=== PATIENT | female | born 1935 | race Two or more races ===

== ENCOUNTER 2021-10-25 07:40 | Inpatient (IN) | payer OTHER ==
[~2021-10-25] VITALS: Ht 162.6 cm; Wt 39.0 kg
--- NOTE | 2021-10-25 07:58 | NUR ---
RENETTA FROM 4 SEAS[facility] FOR NOTED WEAKNESS AND LOW O2 SATS. PT ATTACHED TO MONITOR, O2 SAT 92%. PT IS A&OX0, RESPONSIVE TO PAIN. BLNAKET PROVIDED FOR COMFORT. AWAITING MD BARBER.
--- NOTE | 2021-10-25 08:01 | NUR ---
IV JESSICA Lowery FA 20G.
[2021-10-25 08:49] LABS: BASOPHILS # (AUTO) 0.1 K/uL (0.0-0.2); BASOPHILS % (AUTO) 0.2 % (0.0-2.0); HEMATOCRIT 39 % (33-45); HEMOGLOBIN 12.7 g/dL (11.5-14.8); LYMPHOCYTES # (AUTO) 1.1 K/uL (0.8-4.8); LYMPHOCYTES % (AUTO) 3.3 % (20.0-44.0); MEAN CORPUSCULAR HGB CONC 33 g/dl (31.0-36.0); MEAN CORPUSCULAR VOLUME 88 fL (82-100); MONOCYTES # (AUTO) 1.3 K/uL (0.1-1.30); MONOCYTES % (AUTO) 3.9 % (2.0-12.0); NEUTROPHILS # (AUTO) 30.6 K/uL (1.8-8.9); NEUTROPHILS % (AUTO) 92.6 % (43.0-81.0); PLATELET COUNT (AUTO) 413 K/uL (150-450); RED BLOOD CELL COUNT(AUTO) 4.38 MIL/uL (4.0-5.2)
[2021-10-25] MEDS ORDERED: LEVOFLOXACIN 750 MG /D5W 150ML PIGGYBACK IV ONE (09:30)
[2021-10-25] MEDS ORDERED: VANCOMYCIN 1 GM in IV D5W 250 ML IV ONE (09:30)
[2021-10-25] MEDS ORDERED: LEVOFLOXACIN 750 MG /D5W 150ML 150 ML IV ONE (09:35)
--- NOTE | 2021-10-25 09:37 | NUR ---
NILAY COLLECTED AND SENT TO LAB
--- NOTE | 2021-10-25 09:53 | NUR ---
URINE COLLECTED AND SENT
[2021-10-25 11:03] LABS: ALANINE AMINOTRANSFERASE 389 U/L (12-78); ALBUMIN 2.9 g/dL (3.4-5.0); ALKALINE PHOSPHATASE 160 U/L (46-116); ASPARTATE AMINOTRANSFERASE 732 U/L (15-37); BILIRUBIN,DIRECT 0.8 mg/dL (0.0-0.2); BILIRUBIN,TOTAL 1.1 mg/dL (0.2-1.0); TOTAL PROTEIN, SERUM 7.6 g/dL (6.4-8.2)
[2021-10-25 11:24] LABS: CALCIUM, SERUM 8.8 mg/dL (8.5-10.1); CARBON DIOXIDE 12 mmol/L (21-32); CHLORIDE 95 mmol/L (98-107); CREATININE 3.3 mg/dL (0.6-1.3); GLUCOSE 112 mg/dL (74-106); SODIUM SERUM 128 mmol/L (136-145)
[2021-10-25 11:43] LABS: POTASSIUM 6.3 mmol/L (3.5-5.1); UREA NITROGEN, BLOOD 150 mg/dL (7-18)
[2021-10-25 11:57] LABS: BILIRUBIN,URINE NEGATIVE (NEGATIVE); COLOR,URINE YELLOW (YELLOW); UGLUCOSE NEGATIVE (NEGATIVE)
[2021-10-25 11:58] LABS: PH,URINE 7.5 (5.0-8.0); PROTEIN,URINE 300 mg/dl (NEGATIVE)
[2021-10-25 11:59] LABS: LEUKOCYTE ESTERASE ,URINE LARGE (NEGATIVE); NITRITE, URINE NEGATIVE (NEGATIVE); UROBILINOGEN,URINE 0.2 EU/dL (0.2)
[2021-10-25] MEDS ORDERED: CALCIUM CHLORIDE 1,000 MG/10 ML DISP.SYRIN IV ONE (12:00)
[2021-10-25] MEDS ORDERED: FUROSEMIDE 40 MG/4 ML VIAL IV ONE (12:00)
[2021-10-25] MEDS ORDERED: IV NS 0.9% 1,000 ML BAG IV ONE ×2 (12:00→16:30)
[2021-10-25] MEDS ORDERED: CALCIUM CHLORIDE 1,000 MG/10 ML DISP.SYRIN ONE (12:02)
[2021-10-25] MEDS ORDERED: FUROSEMIDE 20 MG/2 ML VIAL ONE (12:03)
[2021-10-25] MEDS ORDERED: SENN-261 PO (12:05)
[2021-10-25] MEDS ORDERED: CALC1TAB30 PO (12:05)
[2021-10-25] MEDS ORDERED: ROPI0.5T4 PO (12:05)
[2021-10-25] MEDS ORDERED: AMIN30LI2 PO (12:05)
[2021-10-25] MEDS ORDERED: POLY17PO4 PO (12:05)
[2021-10-25] MEDS ORDERED: NA P133E RC (12:05)
[2021-10-25] MEDS ORDERED: CYPR4TAB44 PO (12:05)
[2021-10-25] MEDS ORDERED: MAGN400O6 PO (12:05)
[2021-10-25] MEDS ORDERED: ACET-2605 PO (12:05)
[2021-10-25] MEDS ORDERED: HYDR-4075 PO (12:05)
[2021-10-25] MEDS ORDERED: ACET-868 PO (12:05)
[2021-10-25] MEDS ORDERED: BISA10SU11 RC (12:05)
[2021-10-25] MEDS ORDERED: RANITIDINE PO (12:05)
[2021-10-25] MEDS ORDERED: AMLO-213 PO (12:05)
[2021-10-25] MEDS ORDERED: HYDR4TAB4 PO (12:05)
[2021-10-25] MEDS ORDERED: DOCU-141 PO (12:05)
--- NOTE | 2021-10-25 12:22 | NUR ---
ULTRASOUND AT BEDSIDE
[2021-10-25 12:37] LABS: BACTERIA,URINE Many /HPF (None Seen)
[2021-10-25 12:38] LABS: SQUAMOUS EPITHELIAL CELL,UR Rare /HPF (None Seen)
[2021-10-25 12:41] LABS: BAND % (MANUAL) 10 % (0.0-5.0); LYMPHOCYTES % (MANUAL) 5 % (16-48); NEUTROPHILS % (MANUAL) 80 (42-76)
[2021-10-25 12:42] LABS: MONOCYTES % (MANUAL) 5 % (0-11.0)
--- NOTE | 2021-10-25 14:50 | NUR ---
WAS NOTIFIED BY ADMITTING DEPARTMENT THAT [facility] WILL BE ACCEPTING THE PT. AWAITING A CALL BACK WITH AN UPDATE ON PT BED AND TRANSFER INFO.
[2021-10-25] MEDS ORDERED: CEFEPIME 1 GM in IV D5W 50 ML IV ONE (17:00)
[2021-10-25] MEDS ORDERED: ONDANSETRON HCL/PF 4 MG/2 ML VIAL IV PRN (18:00)
[2021-10-25] MEDS ORDERED: NA PHOS,M-B/NA PHOS,DI-BA 1 EA ENEMA RC PRN (18:00)
[2021-10-25] MEDS ORDERED: HYDROCODONE/APAP 5/325MG TABLET PO PRN (18:00)
[2021-10-25] MEDS ORDERED: ACETAMINOPHEN 325 MG TABLET PO PRN (18:00)
[2021-10-25] MEDS ORDERED: CEFEPIME 1 GM in IV D5W 50 ML IV SCH (18:00)
[2021-10-25] MEDS ORDERED: MAGNESIUM HYDROXIDE 30 ML UDC PO PRN (18:00)
[2021-10-25] MEDS ORDERED: SODIUM POLYSTYRENE SULFONATE 15 G/60 ML BOTTLE PO ONE (18:00)
--- NOTE | 2021-10-25 20:13 | NUR ---
REPORTGIVEN TO [facility]
--- NOTE | 2021-10-25 20:26 | NUR ---
PT TRANSPORTED TO ROOM 259 VIA GURNEY ON SIGN LANGUAGE INTERPRETER PER ACLS PROTOCOL IN STABLE CONDITION
--- NOTE | 2021-10-25 20:40 | NUR ---
MAIL SORTER OPENING NOTES RECEIVED CARE OF PATIENT FROM ER NURSE. PATIENT IS ALERT, NON SAMI SPEAKING, ANXIOUS, CONFUSED. PATIENT ON O2 THERAPY VIA NC AT 3 L/MIN, BILATERAL CHEST RISE AND FALL NOTED, NO SOB, O2 SAT 95%. PATIENT ON TELE MONITOR READING SINUS RHYTHM WITH HR OF 72, NO DISTRESS NOTED ON PATIENT. PATIENT UNABLE TO SWALLOW/ TOLERATE PO INTAKE, SWALLOW EVAL REQUESTED. SAFETY MEASURES IMPLEMENTED. WILL CARRY OUT MD ORDERS. WILL CONTINUE TO MONITOR PATIENT.
[2021-10-25] MEDS: IV NS 0.9% 1,000 ML IV SCH (20:44)
[2021-10-25 20:50] VITALS: BP 147/59
[2021-10-25 21:00] VITALS: BP 102/47
[2021-10-25] MEDS: SODIUM POLYSTYRENE SULFONATE 15 G/60 ML BOTTLE RC ONE ×2 (21:30→22:16)
[2021-10-25] MEDS ORDERED: SODIUM POLYSTYRENE SULFONATE 15 G/60 ML BOTTLE RC ONE (21:30)
[2021-10-25] MEDS: MEROPENEM 1 G in IV NS 0.9% 100 ML IV SCH (21:50)
[2021-10-25 22:00] VITALS: BP 110/50
[2021-10-25] MEDS: ropiniROLE 0.5 MG TABLET PO SCH (22:00)
--- NOTE | 2021-10-25 22:09 | NUR ---
MED NOTE: HS REQUIP 0.5MG PO HELD. PT IS ASPIRATION RISK. PENDING SWALLOW EVAL.
[2021-10-25 23:00] VITALS: BP 129/40
--- NOTE | 2021-10-25 23:11 | NUR ---
RN NOTES SCHEDULED 2129 KAYEXALATE 30G ENEMA ADMINISTRATION STOPPED DUE TO PATIENT BECOMING BRADYCARDIC WITH HR IN THE 30'S AND O2 SAT DECREASING TO THE 70'S. PATIENT RETURNED TO NORMAL CONDITION ONCE ADMINISTRATION WAS STOPPED. HR IS NOW 69 AND O2 SAT IS 100%. DR. JHA MADE AWARE. PATIENT IS RISK FOR ASPIRATION PENDING SWALLOW EVALUATION. NO NEW ORDERS AT THIS TIME.
[2021-10-26] VITALS (26 sets, daily range): BP systolic 86–122; BP diastolic 38–89
[2021-10-26] MEDS: IV NS 0.9% 1,000 ML IV SCH ×2 (04:43→17:13)
[2021-10-26 04:56] LABS: EOSINOPHILS % (AUTO) 0.1 % (0.0-6.0); HEMATOCRIT 32 % (33-45); HEMOGLOBIN 10.7 g/dL (11.5-14.8); LYMPHOCYTES # (AUTO) 0.6 K/uL (0.8-4.8); LYMPHOCYTES % (AUTO) 2.5 % (20.0-44.0); MEAN CORPUSCULAR HGB CONC 34 g/dl (31.0-36.0); MEAN CORPUSCULAR VOLUME 86 fL (82-100); MONOCYTES # (AUTO) 0.3 K/uL (0.1-1.30); MONOCYTES % (AUTO) 1.3 % (2.0-12.0); NEUTROPHILS # (AUTO) 22.8 K/uL (1.8-8.9); NEUTROPHILS % (AUTO) 96.1 % (43.0-81.0); PLATELET COUNT (AUTO) 264 K/uL (150-450); RED BLOOD CELL COUNT(AUTO) 3.65 MIL/uL (4.0-5.2); WHITE BLOOD COUNT (AUTO) 23.8 K/uL (4.3-11.0)
[2021-10-26 05:11] LABS: ALANINE AMINOTRANSFERASE 283 U/L (12-78); ALBUMIN 2.3 g/dL (3.4-5.0); ALKALINE PHOSPHATASE 137 U/L (46-116); ASPARTATE AMINOTRANSFERASE 320 U/L (15-37); BILIRUBIN,TOTAL 1.1 mg/dL (0.2-1.0); CALCIUM, SERUM 8.4 mg/dL (8.5-10.1); CARBON DIOXIDE 14 mmol/L (21-32); CHLORIDE 101 mmol/L (98-107); CREATININE 2.8 mg/dL (0.6-1.3); GLUCOSE 68 mg/dL (74-106); POTASSIUM 5.8 mmol/L (3.5-5.1); SODIUM SERUM 134 mmol/L (136-145); TOTAL PROTEIN, SERUM 6.1 g/dL (6.4-8.2)
[2021-10-26 05:36] LABS: UREA NITROGEN, BLOOD 153 mg/dL (7-18)
--- NOTE | 2021-10-26 07:00 | NUR ---
SYSTEMS MECHANIC NOTES RECEIVED PT ON BED, ALERT, NON CITIZEN OF [place] SPEAKING, ANXIOUS, CONFUSED. PATIENT ON O2 THERAPY VIA NC AT 4 L/MIN, RESPIRATION BRISEIDA AND UNLABORED, NO SOB, O2 SAT 95%. PATIENT ON TELE MONITOR READING SINUS RHYTHM WITH HR OF 72, NO DISTRESS NOTED ON PATIENT. SAFETY MEASURES IMPLEMENTED. SR UP x3, BED LOCKED AND IN LOWEST POSITION, WILL CONTINUE TO MONITOR PATIENT.
--- NOTE | 2021-10-26 07:15 | NUR ---
RN NOTES WILL ENDORSE CARE OF PATIENT TO AM NURSE. NO SIGNIFICANT FINDINGS UPON ALL NURSING ASSESSMENTS. PATIENT NEEDS ANTICIPATED AND MET THROUGHOUT SHIFT. SAFETY MEASURES KEPT IN PLACE. WILL ENDORSE TO AM NURSE FOR CONTINUITY OF CARE.
--- NOTE | 2021-10-26 08:00 | NUR ---
RN NOTES CORE TEMP=90.8, WARMING BLANKET APPLIED ON PT , DR JHA NOTIFIED .
--- NOTE | 2021-10-26 08:10 | NUR ---
WOUND CARE CONSULT: PT PRESENTS WITH SACRAL DEEP TISSUE INJURY, DUSKY COLOR TO FEET AND HEELS, SCARRING TO BACK, AND AREAS OF SKIN DISCOLORATION TO LEFT HIP AND THIGH, PRESENT ON ADMISSION. PT NOTED TO BE CACHECTIC. RECOMMENDATIONS MADE FOR SKIN PROTECTION. DISCUSSED WITH NURSING STAFF. DR ZULETA NOTIFIED OF SURGICAL CONSULT REQUEST. IN AGREEMENT WITH PLAN OF CARE. Addendum: 10/26/21 at 0811 by CANDI DAMON WNDNU Amended: Links added.
[2021-10-26] MEDS: MEROPENEM 1 G in IV NS 0.9% 100 ML IV SCH ×2 (08:21→21:05)
[2021-10-26] MEDS: HEPARIN SODIUM, PORCINE 5000 UNITS/1 ML VIAL SQ SCH ×2 (08:25→21:07)
[2021-10-26] MEDS ORDERED: Z GUARD REMEDY 4 OZ OINT TP PRN (08:30)
[2021-10-26] MEDS ORDERED: SODIUM POLYSTYRENE SULFONATE 15 G/60 ML BOTTLE RC ONE (08:30)
[2021-10-26] MEDS ORDERED: FUROSEMIDE 20 MG/2 ML VIAL IV ONE (08:30)
[2021-10-26] MEDS: CALCIUM CARB 250MG /VITAMIN D 1 UDTAB PO SCH (09:00)
[2021-10-26] MEDS: CYPROHEPTADINE HCL 4 MG TABLET PO SCH (09:00)
[2021-10-26] MEDS: PROSOURCE / PROSTAT (PYXIS) 30 ML UDC PO SCH (09:00)
[2021-10-26] MEDS ORDERED: ALBUTEROL FS 2.5 MG/0.5 ML VIAL.NEB NEB PRN (09:30)
--- NOTE | 2021-10-26 09:30 | NUR ---
RN NOTES PT UNABLE TO HOLD KAYEXALATE ENEMA , DR JAH NOTIFIED .
[2021-10-26] MEDS: Z GUARD REMEDY 4 OZ OINT TP SCH (09:54)
[2021-10-26] MEDS: IPRATROPIUM NEB FS 0.5 MG/2.5 ML AMPUL.NEB NEB SCH ×3 (10:28→20:05)
--- NOTE | 2021-10-26 12:00 | NUR ---
RN NOTES PT HOLDS FOOD HER MOUTH , POOR APPETITE, CONTINUE TO MONITOR.
[2021-10-26] MEDS ORDERED: NEPRO VAN 237 ML CAN PO PRN (13:00)
--- NOTE | 2021-10-26 18:17 | NUR ---
RN NOTES NO SIGNIFICANT CHANGES NOTED ON THIS SHIFT,IVF RUNNING AT 100CC/HR , PT ON 4L O2 N/C , SR UP x3, CALL LIGHT WITHIN EASY REACH, BED LOCKED AND IN LOWEST POSITION, WILL ENDORSE TO OPERATIONS SUPPORT MANAGER NURSE FOR CONTINUITY OF CARE .
[2021-10-26] MEDS ORDERED: DEXTROSE 50%-WATER 50 ML DISP.SYRIN ONE (19:20)
--- NOTE | 2021-10-26 19:25 | NUR ---
RN NOTES PT ALERT / SCRAMMING OUT LOAD AT THIS , REFUSED TO EAT DINNER , BG= 38 , REPEAT 34, ONE AMP OF D50 IV GIVEN, REPORT ENDORSE TO MILE MILLER FOR CONTINUITY OF CARE .
[2021-10-26] MEDS ORDERED: DEXTROSE 50%-WATER 50 ML DISP.SYRIN IV PRN (19:30)
--- NOTE | 2021-10-26 19:30 | NUR ---
RN NOTE PATIENT BLOOD SUGAR 34. INFORMED DR. JHA, RECEIVED ORDER FOR D5O IVP. ACCUCHECK Q6HR, AND PRN D50 IF BLOOD SUGAR LESS THAN 60. ORDERS READ BACK NOTED AND CARRIED OUT.
[2021-10-26] MEDS: IV D5/ 0.9% NACL 1,000 ML IV PRN (19:37)
[2021-10-26] MEDS: ropiniROLE 0.5 MG TABLET PO SCH (21:05)
[2021-10-27] VITALS (46 sets, daily range): BP systolic 50–131; BP diastolic 24–91
[2021-10-27] MEDS: BLOOD SUGAR DIAGNOSTIC 1 EACH STRIP IN SCH ×4 (00:11→18:00)
--- NOTE | 2021-10-27 01:10 | NUR ---
RN NOTE INFORMED DR. JHA PATIENT BP IS 60S/40S. RECEIVED ORDER FOR NS 1000ML BOLUS. LEVOPHED IF SBP LESS THAN 95, AND PICC LINE INSERTION IF LEVOPHED NEEDED. ORDER READ BACK NOTED AND CARRIED OUT.
[2021-10-27] MEDS ORDERED: IV NS 0.9% 1,000 ML IV ONE (01:30)
[2021-10-27] MEDS ORDERED: NOREPINEPHRINE 8 MG in IV NS 0.9% 242 ML IV PRN (01:30)
[2021-10-27] MEDS: IPRATROPIUM NEB FS 0.5 MG/2.5 ML AMPUL.NEB NEB SCH ×4 (01:36→19:58)
[2021-10-27] MEDS ORDERED: NOREPINEPHRINE 4 MG/4 ML AMPUL IV ONE (02:17)
[2021-10-27] MEDS: NOREPINEPHRINE 8 MG in IV NS 0.9% 242 ML IV PRN ×3 (02:24→16:09)
[2021-10-27 04:41] LABS: BASOPHILS % (AUTO) 0.1 % (0.0-2.0); EOSINOPHILS % (AUTO) 0.1 % (0.0-6.0); HEMATOCRIT 30 % (33-45); LYMPHOCYTES # (AUTO) 0.3 K/uL (0.8-4.8); LYMPHOCYTES % (AUTO) 0.9 % (20.0-44.0); MEAN CORPUSCULAR HGB CONC 33 g/dl (31.0-36.0); MEAN CORPUSCULAR VOLUME 89 fL (82-100); MONOCYTES # (AUTO) 0.2 K/uL (0.1-1.30); MONOCYTES % (AUTO) 0.6 % (2.0-12.0); NEUTROPHILS # (AUTO) 28.8 K/uL (1.8-8.9); NEUTROPHILS % (AUTO) 98.3 % (43.0-81.0); PLATELET COUNT (AUTO) 267 K/uL (150-450); WHITE BLOOD COUNT (AUTO) 29.3 K/uL (4.3-11.0)
[2021-10-27 04:50] LABS: CALCIUM, SERUM 7.5 mg/dL (8.5-10.1); CREATININE 3.2 mg/dL (0.6-1.3); GLUCOSE 139 mg/dL (74-106)
[2021-10-27 04:53] LABS: CARBON DIOXIDE 9 mmol/L (21-32); UREA NITROGEN, BLOOD 145 mg/dL (7-18)
[2021-10-27 05:00] LABS: BAND % (MANUAL) 2 % (0.0-5.0)
[2021-10-27 05:01] LABS: LYMPHOCYTES % (MANUAL) 4 % (16-48); MONOCYTES % (MANUAL) 1 % (0-11.0); NEUTROPHILS % (MANUAL) 93 (42-76)
[2021-10-27 05:20] LABS: CHLORIDE 110 mmol/L (98-107); POTASSIUM 5.8 mmol/L (3.5-5.1); SODIUM SERUM 140 mmol/L (136-145)
[2021-10-27] MEDS: IV D5/ 0.9% NACL 1,000 ML IV PRN ×2 (05:32→06:36)
--- NOTE | 2021-10-27 05:45 | NUR ---
RN NOTE PATIENT CRITICAL LAB FOR CO2 9. INFORMED DR. JHA. RR 30, ON 3L NC. RECEIVED ORDER FOR ABG. CRITICAL FOR LACTIC ACID 4.8, INCREASED FROM 2.1. DR. JHA INFORMED. NO NEW ORDERS AT THIS TIME.
[2021-10-27 06:01] LABS: ABG BASE EXCESS -17.4 mmol/L; ABG PCO2 13.7 mmHg (35.0-45.0); ABG PH 7.298 (7.350-7.450); ABG PO2 92.2 mmHg (75.0-100.0); COHb 0.3 % (0.5-1.5); MetHb 0.3 % (0.0-1.5); SITE, ABG Left Brachial
--- NOTE | 2021-10-27 06:11 | NUR ---
RN NOTE ABG RESULTS PH 7.2, PCO2 13.7 PO2 92.2, HCO3 6.6. INFORMED DR. JHA, NO NEW ORDERS AT THIS TIME.
--- NOTE | 2021-10-27 06:45 | NUR ---
RN CLOSING NOTE PATIENT IS NOT ALERT, OPENS EYES SPONTANEOUSLY. SCREAMS, SEEMS ANXIOUS. ON 3L NC. RR 30-33/MIN. CO2 -9. ABG ORDERED. DR. JHA MADE AWARE NO NEW ORDERS RECEIVED. PATIENT BLOOD SUGAR WAS 34, BUT AFTER D50 AND IVF CHANGE TO D5NS BLOOD SUGAR HAS BEEN MAINTAINED. ACCU CHECKS ARE BEING DONE Q6HR. LACTIC ACID THIS AM IS 4.8, MD AWARE, NO NEW ORDERS. BP LOW, 1L NS GIVEN. CONTINUED TO BE LOW NOW RUNNING LEVO, VIA PICC LINE IN YENIFER. PRN TYLENOL GIVEN D/T S/S PAIN INCLUDING SCREAMING. TEMPERATURE LOW, BARE HUGGER APPLIED, TEMPERATURE NOW WNL. BARE HUGGER REMOVED. APPLIED PUREWIC FOR URINARY INCONTINENCE. NO BM. BED IS LOW AND LOCKED, HOB ELEVATED IN SEMI FOWLERS, SIDE RAILS UP, CALL LIGHT WITHIN REACH. Addendum: 10/27/21 at 0657 by MILE BEAUCHAMP RN RECEIVED PATIENT SINUS RHYTHM NOW SINUS TACHYCARDIA HR 115
[2021-10-27] MEDS ORDERED: VANCOMYCIN 500 MG in IV D5W 100ml IV ONE (07:00)
--- NOTE | 2021-10-27 08:06 | NUR ---
RN NOTE PT RECEIVED IN BED, AWAKE AND RESPONSIVE. CONTINUES ON O2 VIA NC @4L. PT OFFERED BREAKFAST BUT REFUSED. YENIFER PICC IN PLACE AND PATENT ON IVF D5NS@125CC/HR. V/S STABLE AT THIS TIME. WILL CONTINUE TO MONITOR. SAFETY MEASURES FOLLOWED.
[2021-10-27] MEDS: CALCIUM CARB 250MG /VITAMIN D 1 UDTAB PO SCH (09:00)
[2021-10-27] MEDS: PROSOURCE / PROSTAT (PYXIS) 30 ML UDC PO SCH (09:00)
[2021-10-27] MEDS: Z GUARD REMEDY 4 OZ OINT TP SCH (09:00)
[2021-10-27] MEDS: CYPROHEPTADINE HCL 4 MG TABLET PO SCH (09:00)
[2021-10-27 10:15] LABS: ABG OXYGEN SATURATION 97.5 % (92.0-98.5); ABG PCO2 14.9 mmHg (35.0-45.0); ABG PH 7.206 (7.350-7.450); ABG PO2 111.9 mmHg (75.0-100.0); AaDO2 156.2 mmHg; COHb 0.3 % (0.5-1.5); MetHb 0.3 % (0.0-1.5); O2Hb 96.9 % (94.0-97.0); SITE, ABG Right Radial
[2021-10-27] MEDS ORDERED: Sodium Bicarbonate 100 MEQ in IV D5 / 0.2% NACL 1,000 ML IV PRN (10:30)
[2021-10-27] MEDS ORDERED: SODIUM BICARBONATE SYR 50 MEQ/50 ML DISP.SYRIN IV STA (10:33)
[2021-10-27 10:56] LABS: BILIRUBIN,DIRECT 0.7 mg/dL (0.0-0.2)
[2021-10-27] MEDS: MEROPENEM 1 G in IV NS 0.9% 100 ML IV SCH ×2 (11:25→21:19)
[2021-10-27] MEDS: HEPARIN SODIUM, PORCINE 5000 UNITS/1 ML VIAL SQ SCH ×2 (11:37→21:20)
[2021-10-27] MEDS: Sodium Bicarbonate 100 MEQ in IV D5 / 0.2% NACL 1,000 ML IV SCH ×2 (13:05→22:44)
--- NOTE | 2021-10-27 13:30 | NUR ---
DR. SANTOS SPOKE AT [facility] REGARDING PATIENT CONDITION AND PLAN OF CARE. PATIENT GERALDO CROOK. INDICATED THAT PATIENT WILL BE DNR/DNI AND WOULD NOT WANT HER ON ANY LIFE SUPPORT AT ALL. VITADERS PLACED. ALL OTHER TREATMENTS OKAY INCLUDING HD IF NEEDED.
[2021-10-27 16:04] LABS: BILIRUBIN,URINE NEGATIVE (NEGATIVE); COLOR,URINE BROWN (YELLOW); UGLUCOSE NEGATIVE (NEGATIVE)
[2021-10-27 16:05] LABS: NITRITE, URINE NEGATIVE (NEGATIVE); UROBILINOGEN,URINE 0.2 EU/dL (0.2)
[2021-10-27 16:06] LABS: LEUKOCYTE ESTERASE ,URINE LARGE (NEGATIVE); PROTEIN,URINE 4+ mg/dl (NEGATIVE)
[2021-10-27 16:08] LABS: BACTERIA,URINE 3+ /HPF (None Seen); RBC,URINE TOO NUMEROUS TO COUN /HPF (0-2); SQUAMOUS EPITHELIAL CELL,UR 0-2 /HPF (None Seen); WBC,URINE TOO NUMEROUS TO COUN /HPF (0-3)
--- NOTE | 2021-10-27 16:17 | NUR ---
RN NOTE PT URINE SPECIMEN COLLECTED. HOFFMAN CATH FR 16 PLACED VIA STERILE TECHNIQUE. PMD VIA T.O.
[2021-10-27 16:31] LABS: ABG OXYGEN SATURATION 97.5 % (92.0-98.5); ABG PCO2 17.3 mmHg (35.0-45.0); ABG PO2 104.2 mmHg (75.0-100.0); AaDO2 125.2 mmHg; COHb 0.1 % (0.5-1.5); MetHb 0.3 % (0.0-1.5); O2Hb 97.1 % (94.0-97.0); SITE, ABG Left Brachial
[2021-10-27 17:05] LABS: CREATININE, URINE < 13.0 MG/DL (30.0-125.0); URINE SODIUM, RANDOM 85 mmol/l (40-220)
--- NOTE | 2021-10-27 19:05 | NUR ---
RN OPENING NOTES RECEIVED PATIENT ON BED, AWAKE, OPEN EYES. ON NASAL CANULA @ 6LPM SATING AT 94%. RESPIRATORY EVEN AND UNLABORED, NO SOB NOTED. AFEBRILE, NO S/S OF DISTRESS NOTED. PATIENT YENIFER PICC LINE, RIGHT FOREARM # 22 AND RIGHT WRIST #20 PERIPHERAL LINE, FLUSHED WITH NS, NO S/S OF INFILTRATION NOTED AT SITE. WITH IVF D5. O.2NACL + BICARB 100MEQ @ 110ML/HR. LEVO @ 0.7MCG/KG/MIN. HOFFMAN CATHETER DRAINING WITH CLOUDY+PUSS URINE OUTPUT VIA GRAVITY. ALL SAFETY MEASURE PROVIDED. BED IN LOWEST POSITION, LOCKED. BED ALARM ARMED. CONTINUE TO MONITOR.
--- NOTE | 2021-10-27 20:00 | NUR ---
RN NOTE PT RESTING IN BED, RESPONSIVE TO STIMULI. CONTINUES ON O2 VIA NC @6L, O2 INCREASED FROM 4L, PT NOTED DESATURATED WHILE DOING PERINIAL CARE. YENIFER PICC IN PLACE AND PATENT ON IVF NS BICARB @100CC/HR. V/S STABLE AT THIS TIME. DUE MEDS GIVEN, AM/PM CARE DONE. WILL CONTINUE TO MONITOR. SAFETY MEASURES FOLLOWED.
--- NOTE | 2021-10-27 20:20 | NUR ---
RN NOTES PATIENT DESATING @ 86%, NOTIFIED RT, CHANGED TO SIMPLE MASK @ 10 LPM. SATING @ 90%
--- NOTE | 2021-10-27 20:50 | NUR ---
RN NOTES PATIENT DESATING @ 86%, NOTIFIED RT, CHANGED TO NRB MASK @ 15 LPM. SATING @ 97%
[2021-10-27] MEDS: NOREPINEPHRINE 32 MG in IV NS 0.9% 218 ML IV PRN (21:16)
[2021-10-27] MEDS: PANTOPRAZOLE 40 MG VIAL IV SCH (21:19)
[2021-10-27] MEDS: ropiniROLE 0.5 MG TABLET PO SCH (22:00)
--- NOTE | 2021-10-27 22:02 | NUR ---
RN NOTES PATIENT NOTED WITH HEART RATE- 204/MIN. NOTIFIED DR. JHA WITH NEW ORDER STAT EKG NOTED AND CARRIED OUT.
--- NOTE | 2021-10-27 22:17 | NUR ---
RN NOTES RELAYED EKG RESULT TO DR. JHA, WITH NEW ORDER CARDIZEM DRIP, DIGOXIN 0.25 AND CHANGE LEVO TO NEOSYNEPHRINE NOTED AND CARRIED OUT.
[2021-10-27] MEDS ORDERED: DIGOXIN INJ 0.5 MG/2 ML AMPUL IV ONE (22:30)
[2021-10-27] MEDS ORDERED: DILTIAZEM HCL IV 125 MG in IV NS 0.9% 100 ML IV PRN ×2 (22:30→23:00)
[2021-10-27] MEDS ORDERED: PHENYLEPHRINE 100 MG in IV NS 0.9% 240 ML IV PRN ×2 (22:30→23:00)
--- NOTE | 2021-10-27 22:42 | NUR ---
RN NOTES ROPINIROLE 0.5MG NOT GIVEN, PATIENT UNABLE TO SWALLOW.
--- NOTE | 2021-10-27 23:00 | NUR ---
RN NOTES PATIENT NOTED WITH TEMPERATURE 95.0 F DEGREES, NATAN HUGGER APPLIED.
[2021-10-27] MEDS ORDERED: DILTIAZEM HCL 50 MG IV ONE (23:01)
[2021-10-27] MEDS ORDERED: PHENYLEPHRINE 10 MG/ML VIAL ONE (23:02)
[2021-10-27] MEDS ORDERED: DILTIAZEM HCL 25 MG IV ONE (23:05)
--- NOTE | 2021-10-27 23:34 | NUR ---
RN NOTES LEVOPHED STOPPED, NEOSYNEPHRINE 0.5MCG/KG/MIN STARTED.
[2021-10-28] VITALS (98 sets, daily range): BP systolic 68–136; BP diastolic 22–59
--- NOTE | 2021-10-28 | NUR ---
RN NOTES LEVO RESTARTED @ 0.1MCG/KG/MIN
[2021-10-28] MEDS: IPRATROPIUM NEB FS 0.5 MG/2.5 ML AMPUL.NEB NEB SCH ×4 (01:13→19:40)
--- NOTE | 2021-10-28 01:13 | NUR ---
MED NOTE: ALL MEDICATIONS ADMINISTERED UNDER VERIFIED DOSES.
[2021-10-28] MEDS: BLOOD SUGAR DIAGNOSTIC 1 EACH STRIP IN SCH ×4 (01:19→17:31)
[2021-10-28 04:21] LABS: BASOPHILS # (AUTO) 0.1 K/uL (0.0-0.2); BASOPHILS % (AUTO) 0.3 % (0.0-2.0); EOSINOPHILS % (AUTO) 0.1 % (0.0-6.0); HEMATOCRIT 27 % (33-45); HEMOGLOBIN 8.8 g/dL (11.5-14.8); LYMPHOCYTES # (AUTO) 0.4 K/uL (0.8-4.8); LYMPHOCYTES % (AUTO) 1.1 % (20.0-44.0); MEAN CORPUSCULAR HGB CONC 32 g/dl (31.0-36.0); MEAN CORPUSCULAR VOLUME 89 fL (82-100); MONOCYTES # (AUTO) 0.1 K/uL (0.1-1.30); MONOCYTES % (AUTO) 0.3 % (2.0-12.0); NEUTROPHILS # (AUTO) 39.1 K/uL (1.8-8.9); NEUTROPHILS % (AUTO) 98.2 % (43.0-81.0); PLATELET COUNT (AUTO) 147 K/uL (150-450); RED BLOOD CELL COUNT(AUTO) 3.07 MIL/uL (4.0-5.2)
[2021-10-28 04:34] LABS: WHITE BLOOD COUNT (AUTO) 39.8 K/uL (4.3-11.0)
[2021-10-28 04:42] LABS: ALANINE AMINOTRANSFERASE 118 U/L (12-78); ALKALINE PHOSPHATASE 152 U/L (46-116); ASPARTATE AMINOTRANSFERASE 75 U/L (15-37); BILIRUBIN,TOTAL 0.7 mg/dL (0.2-1.0); CALCIUM, SERUM 7.5 mg/dL (8.5-10.1); CARBON DIOXIDE 14 mmol/L (21-32); CHLORIDE 110 mmol/L (98-107); CREATININE 3.1 mg/dL (0.6-1.3); GLUCOSE 171 mg/dL (74-106); POTASSIUM 5.1 mmol/L (3.5-5.1); SODIUM SERUM 142 mmol/L (136-145); TOTAL PROTEIN, SERUM 4.3 g/dL (6.4-8.2)
[2021-10-28 04:43] LABS: ALBUMIN 1.3 g/dL (3.4-5.0); UREA NITROGEN, BLOOD 139 mg/dL (7-18)
[2021-10-28 05:04] LABS: BAND % (MANUAL) 3 % (0.0-5.0); NEUTROPHILS % (MANUAL) 91 (42-76)
[2021-10-28 05:05] LABS: BASOPHILS % (MANUAL) 0 % (0.0-2.0); EOSINOPHILS % (MANUAL) 0 % (0-4); LYMPHOCYTES % (MANUAL) 4 % (16-48); MONOCYTES % (MANUAL) 2 % (0-11.0)
--- NOTE | 2021-10-28 06:22 | NUR ---
ICU/RN: PER DR. JHA DISCONTINUE CARDIZEM DRIP. PT CONVERTED TO SINUS RHYTHM @0300
--- NOTE | 2021-10-28 07:00 | NUR ---
RN NOTES RECEIVED PT ON BED ,DRAWZY , NON VERBAL , DOES NOT FOLLOW COMMAND, RESPONDS TO PAINFUL STIMULI , ON NON- REBREATHER MASK , O2 SAT WNL, ON TELE SR HR UN 90'S , HOFFMAN DRAINING TO GRAVITY, PT ON LEVO AT .4 MCG/KG/MIN FOR BP SUPPORT , ON BICARB DRIP AT 100 CC/HR , IV SITES CLEAN, DRY AND INTACT, SR UP x3,BED LOCKED AND IN LOWEST POSITION, CONTINUE TO MONITOR
[2021-10-28] MEDS: PANTOPRAZOLE 40 MG VIAL IV SCH ×2 (08:12→16:42)
[2021-10-28] MEDS: MEROPENEM 1 G in IV NS 0.9% 100 ML IV SCH ×2 (08:12→21:32)
[2021-10-28] MEDS: HEPARIN SODIUM, PORCINE 5000 UNITS/1 ML VIAL SQ SCH ×2 (08:14→21:36)
[2021-10-28] MEDS: CALCIUM CARB 250MG /VITAMIN D 1 UDTAB PO SCH (08:15)
[2021-10-28] MEDS: CYPROHEPTADINE HCL 4 MG TABLET PO SCH (08:15)
[2021-10-28] MEDS: PROSOURCE / PROSTAT (PYXIS) 30 ML UDC PO SCH (08:15)
[2021-10-28] MEDS: Z GUARD REMEDY 4 OZ OINT TP SCH (08:19)
--- NOTE | 2021-10-28 08:19 | NUR ---
RN NOTES PT IS LETHARGIC, HIGH RISK FOR ASPIRATION, AM PO MEDS HELD , MD NOTIFIED.
--- NOTE | 2021-10-28 10:00 | NUR ---
RN NOTES FAMILY REQUESTING TO TALK TO DR ABHIJEET MD NOTIFED,
[2021-10-28] MEDS: Sodium Bicarbonate 100 MEQ in IV D5 / 0.2% NACL 1,000 ML IV SCH ×2 (11:10→21:25)
--- NOTE | 2021-10-28 14:00 | NUR ---
RN NOTES CONTINUE PRESSORS , BP WNL, PT IS NONVERBAL , LETHARGIC, CONTINUE TO MONITOR .
--- NOTE | 2021-10-28 18:20 | NUR ---
RN NOTES PT REMAINS LETHARGIC AND NONVERBAL , DNR, DNI, ON LEVO AT .4 MCG/KG/MIN FOR BP SUPPORT, BICARB DRIP AT 100CC/HR RUNNING , SR UP x3, CALL LIGHT WITHIN EASY REACH, BED LOCKED AND IN LOWEST POSITION, WILL ENDORSE TO COMMODITY TRADER NURSE FOR CONTINUITY OF CARE .
--- NOTE | 2021-10-28 18:58 | NUR ---
ANGELA NOTES O2 SAT 87-88%, FIO2 INCREASED TO 100% PER MD ORDER . Addendum: 10/28/21 at 1900 by HUBER BOOGIE RN CORRECTION PLEASE DISREGARD ABOVE CHARTING.
--- NOTE | 2021-10-28 19:10 | NUR ---
RN OPENING NOTES RECEIVED PATIENT ON BED, LETHARGIC, CONFUSED, OPEN EYES. ON NON-REBREATHER MASK @ 15LPM SATING AT 99%. RESPIRATORY EVEN AND UNLABORED, NO SOB NOTED. WITH TEMPERATURE- 95.6F DEGREES, NATAN HUGGER APPLIED, NO S/S OF DISTRESS NOTED. PATIENT YENIFER PICC LINE, RIGHT FOREARM # 22 AND RIGHT WRIST #20 PERIPHERAL LINE, FLUSHED WITH NS, NO S/S OF INFILTRATION NOTED AT SITE. WITH IVF D5. O.2NACL + BICARB 100MEQ @ 100ML/HR. LEVO @ 0.3 MCG/KG/MIN. HOFFMAN CATHETER DRAINING WITH CLOUDY+PUSS URINE OUTPUT VIA GRAVITY. ALL SAFETY MEASURE PROVIDED. BED IN LOWEST POSITION, LOCKED. BED ALARM ARMED. CONTINUE TO MONITOR.
[2021-10-28] MEDS ORDERED: VANCOMYCIN 500 MG in IV D5W 100ml IV SCH (20:00)
[2021-10-28] MEDS: NOREPINEPHRINE 32 MG in IV NS 0.9% 218 ML IV PRN (20:55)
[2021-10-28] MEDS: ropiniROLE 0.5 MG TABLET PO SCH (22:00)
--- NOTE | 2021-10-28 22:15 | NUR ---
RN NOTES ROPINIROLE 0.5MG NOT GIVEN, PATIENT LETHARGIC, UNABLE TO SWALLOW.
[2021-10-29] VITALS (94 sets, daily range): BP systolic 82–132; BP diastolic 31–60
[2021-10-29] MEDS: BLOOD SUGAR DIAGNOSTIC 1 EACH STRIP IN SCH ×5 (00:21→23:34)
[2021-10-29] MEDS: IPRATROPIUM NEB FS 0.5 MG/2.5 ML AMPUL.NEB NEB SCH ×4 (01:19→19:39)
[2021-10-29 04:08] LABS: BASOPHILS % (AUTO) 0.2 % (0.0-2.0); HEMATOCRIT 24 % (33-45); HEMOGLOBIN 8.1 g/dL (11.5-14.8); LYMPHOCYTES # (AUTO) 0.6 K/uL (0.8-4.8); LYMPHOCYTES % (AUTO) 1.9 % (20.0-44.0); MEAN CORPUSCULAR HGB CONC 33 g/dl (31.0-36.0); MEAN CORPUSCULAR VOLUME 86 fL (82-100); MONOCYTES # (AUTO) 0.3 K/uL (0.1-1.30); MONOCYTES % (AUTO) 1.2 % (2.0-12.0); NEUTROPHILS # (AUTO) 27.8 K/uL (1.8-8.9); NEUTROPHILS % (AUTO) 96.7 % (43.0-81.0); PLATELET COUNT (AUTO) 83 K/uL (150-450); RED BLOOD CELL COUNT(AUTO) 2.82 MIL/uL (4.0-5.2); WHITE BLOOD COUNT (AUTO) 28.7 K/uL (4.3-11.0)
[2021-10-29 04:48] LABS: ALANINE AMINOTRANSFERASE 113 U/L (12-78); ALKALINE PHOSPHATASE 161 U/L (46-116); ASPARTATE AMINOTRANSFERASE 147 U/L (15-37); BILIRUBIN,TOTAL 0.8 mg/dL (0.2-1.0); CREATININE 3.1 mg/dL (0.6-1.3); GLUCOSE 171 mg/dL (74-106); TOTAL PROTEIN, SERUM 4.1 g/dL (6.4-8.2)
[2021-10-29 05:03] LABS: ALBUMIN 1.3 g/dL (3.4-5.0); UREA NITROGEN, BLOOD 132 mg/dL (7-18)
[2021-10-29 05:32] LABS: CARBON DIOXIDE 21 mmol/L (21-32); CHLORIDE 109 mmol/L (98-107); SODIUM SERUM 146 mmol/L (136-145)
[2021-10-29 05:45] LABS: BAND % (MANUAL) 2 % (0.0-5.0)
[2021-10-29 05:46] LABS: BASOPHILS % (MANUAL) 0 % (0.0-2.0); EOSINOPHILS % (MANUAL) 0 % (0-4); LYMPHOCYTES % (MANUAL) 3 % (16-48); MONOCYTES % (MANUAL) 3 % (0-11.0); NEUTROPHILS % (MANUAL) 92 (42-76)
--- NOTE | 2021-10-29 06:00 | NUR ---
RN NOTES RELAYED CRITICAL LAB VALUE TO DR. JHA, LACTIC ACID-5.1, BUN-132, CREA-3.1, ALBUMIN-1.[address] JHA NO NEW ORDER.
[2021-10-29] MEDS: Sodium Bicarbonate 100 MEQ in IV D5 / 0.2% NACL 1,000 ML IV SCH (06:53)
--- NOTE | 2021-10-29 07:00 | NUR ---
RN NOTES RECEIVED PT ON BED , NON VERBAL , DOES NOT FOLLOW COMMAND, RESPONDS TO PAINFUL STIMULI , ON NON- REBREATHER MASK , O2 SAT WNL, ON TELE SR HR UN 90'S , HOFFMAN DRAINING TO GRAVITY, PT ON LEVO AT .3 MCG/KG/MIN FOR BP SUPPORT , ON BICARB DRIP AT 100 CC/HR , IV SITES CLEAN, DRY AND INTACT, SR UP x3,BED LOCKED AND IN LOWEST POSITION, CONTINUE TO MONITOR.
--- NOTE | 2021-10-29 07:00 | NUR ---
RN NOTES PT IS LETHARGIC, HIGH RISK FOR ASPIRATION, AM PO MEDS HELD , MD NOTIFIED.
--- NOTE | 2021-10-29 07:03 | NUR ---
RN NOTES PATIENT REMAIN STABLE. RESPIRATORY EVEN AND UNLABORED, NO SOB NOTED. WITH IVF D5. O.2NACL + BICARB 100MEQ @ 100ML/HR. LEVO @ 0.3 MCG/KG/MIN. HOFFMAN CATHETER DRAINING WITH CLOUDY+PUSS URINE OUTPUT VIA GRAVITY. ALL DUE MEDS GIVEN. ALL SAFETY MEASURE PROVIDED. BED IN LOWEST POSITION, LOCKED. BED ALARM ARMED. REPORT GIVEN TO MORNING SHIFT NURSE FOR CONTINUITY OF CARE..
[2021-10-29] MEDS: CALCIUM CARB 250MG /VITAMIN D 1 UDTAB PO SCH (08:14)
[2021-10-29] MEDS: PANTOPRAZOLE 40 MG VIAL IV SCH ×2 (08:14→16:54)
[2021-10-29] MEDS: MEROPENEM 1 G in IV NS 0.9% 100 ML IV SCH ×2 (08:14→21:05)
[2021-10-29] MEDS: CYPROHEPTADINE HCL 4 MG TABLET PO SCH (08:14)
[2021-10-29] MEDS: Z GUARD REMEDY 4 OZ OINT TP SCH (08:15)
[2021-10-29] MEDS: PROSOURCE / PROSTAT (PYXIS) 30 ML UDC PO SCH (08:15)
[2021-10-29 10:37] LABS: BILIRUBIN,DIRECT 0.6 mg/dL (0.0-0.2)
[2021-10-29] MEDS: IV D5/0.45 NACL 1,000 ML IV PRN ×2 (11:02→20:53)
--- NOTE | 2021-10-29 11:06 | NUR ---
RN NOTES NGT INSERTED PER MD AND FAMILY REQUEST . PLACEMENT CHECKED WITH TWO RNS .
[2021-10-29] MEDS: NEPRO 1,000 ML BOTTLE GT PRN (11:22)
--- NOTE | 2021-10-29 14:49 | NUR ---
RN NOTES NGT ADVANCED 5 CM RADIOLOGIST AND MD ORDER .
--- NOTE | 2021-10-29 18:08 | NUR ---
RN NOTES PT REMAINS LETHARGIC AND NONVERBAL , DNR, DNI, ON LEVO AT .3 MCG/KG/MIN FOR BP SUPPORT, ON LEVO AT .3 MCG/KG/MIN, FOR BP SUPPORT, TUBE FEEDING AT 15CC/HR RUNNING , NO RESIDUAL NOTED, IVF AT 100C/HR INFUSING, SR UP x3, CALL LIGHT WITHIN EASY REACH, BED LOCKED AND IN LOWEST POSITION, WILL ENDORSE TO PAPERHANGER AND PAINTER NURSE FOR CONTINUITY OF CARE .
--- NOTE | 2021-10-29 20:00 | NUR ---
Received patient lethargic in no acute distress.Respiration even and unlabored.Maintain on O2 Simple Mask SPO2 wnl.SR per monitor.Levophed gtt infusing for BP support.Patient with ongoing ngt feeding no residual noted.Maintain HOB elevated.FC to gravity.Turned and repositioned to comfort.Patient code status DNR/DNI.
[2021-10-29] MEDS: VANCOMYCIN 500 MG in IV D5W 100ml IV SCH (20:01)
[2021-10-29] MEDS: ropiniROLE 0.5 MG TABLET PO SCH (21:12)
[2021-10-29] MEDS: NOREPINEPHRINE 32 MG in IV NS 0.9% 218 ML IV PRN (21:23)
[2021-10-30] VITALS (96 sets, daily range): BP systolic 82–132; BP diastolic 30–60
[2021-10-30] MEDS: IPRATROPIUM NEB FS 0.5 MG/2.5 ML AMPUL.NEB NEB SCH ×4 (01:27→19:19)
[2021-10-30 05:22] LABS: BASOPHILS % (AUTO) 0.1 % (0.0-2.0); EOSINOPHILS % (AUTO) 0.1 % (0.0-6.0); HEMATOCRIT 23 % (33-45); HEMOGLOBIN 7.7 g/dL (11.5-14.8); LYMPHOCYTES # (AUTO) 0.7 K/uL (0.8-4.8); LYMPHOCYTES % (AUTO) 3.1 % (20.0-44.0); MEAN CORPUSCULAR HGB CONC 33 g/dl (31.0-36.0); MEAN CORPUSCULAR VOLUME 87 fL (82-100); MONOCYTES # (AUTO) 0.1 K/uL (0.1-1.30); MONOCYTES % (AUTO) 0.5 % (2.0-12.0); NEUTROPHILS # (AUTO) 21.3 K/uL (1.8-8.9); NEUTROPHILS % (AUTO) 96.2 % (43.0-81.0); RED BLOOD CELL COUNT(AUTO) 2.69 MIL/uL (4.0-5.2); WHITE BLOOD COUNT (AUTO) 22.1 K/uL (4.3-11.0)
[2021-10-30 05:28] LABS: CARBON DIOXIDE 28 mmol/L (21-32); CHLORIDE 107 mmol/L (98-107); CREATININE 2.6 mg/dL (0.6-1.3); GLUCOSE 185 mg/dL (74-106); POTASSIUM 2.8 mmol/L (3.5-5.1); SODIUM SERUM 143 mmol/L (136-145)
[2021-10-30 05:30] LABS: UREA NITROGEN, BLOOD 117 mg/dL (7-18)
[2021-10-30 05:37] LABS: PLATELET COUNT (AUTO) 43 K/uL (150-450)
[2021-10-30 06:05] LABS: BAND % (MANUAL) 2 % (0.0-5.0); BASOPHILS % (MANUAL) 0 % (0.0-2.0); EOSINOPHILS % (MANUAL) 0 % (0-4); LYMPHOCYTES % (MANUAL) 2 % (16-48); MONOCYTES % (MANUAL) 2 % (0-11.0); NEUTROPHILS % (MANUAL) 94 (42-76)
--- NOTE | 2021-10-30 06:10 | NUR ---
Patient resting in no acute distress.Tolerating ngt feeding.Levophed gtt infusing at same rate. Blood sugar monitored.Abnormal am labs BUN 170,Creat 2.6,Platelet 43.lactic acid 2.8 called to no new orders received.AM care done.No significant changes noted during the night.
[2021-10-30] MEDS: BLOOD SUGAR DIAGNOSTIC 1 EACH STRIP IN SCH ×4 (06:23→23:48)
[2021-10-30] MEDS: IV D5/0.45 NACL 1,000 ML IV PRN ×2 (07:02→19:06)
--- NOTE | 2021-10-30 07:30 | NUR ---
RN NOTES PT FOUND SEMI FOWLERS DISPLAYING NO S/S OF DISTRESS, FLACC = 0 AND BREATHING DEMONSTRATES MILD DISTRESS ON 8L O2 SIMPLE MASK. BEIR HUGGER ON, TEMP ASSESSMENT WILL OCCUR SHORTLY. NEPRO 1.8 TF VIA NG TUBE, RESIDUAL ASSESSMENT WILL OCCUR SHORTLY. R UA PICC IS PATIENT AND INTACT. HOFFMAN CATH RESERVOIR BELOW PATIENT DRAINING BY GRAVITY. RN WILL CONTINUE CARE PLAN AND ANTICIPATE NEEDS. SAFETY MEASURES IN PLACE, BED LOCKED AND IN LOWEST POSITION, SIDE RAILS UPX2, CALL LIGHT WITHIN REACH, BED ALARM ARMED.
[2021-10-30] MEDS ORDERED: POTASSIUM CHLORIDE 20 MEQ TAB.PRT.SR PO ONE (08:30)
[2021-10-30] MEDS: PANTOPRAZOLE 40 MG VIAL IV SCH ×2 (09:26→17:40)
[2021-10-30] MEDS: POTASSIUM CHLORIDE 10 MEQ/50 ML PREMIXED IVPB FOR PERIPHERAL LINE IV SCH ×2 (09:26→11:16)
[2021-10-30] MEDS: CALCIUM CARB 250MG /VITAMIN D 1 UDTAB PO SCH (09:27)
[2021-10-30] MEDS: MEROPENEM 1 G in IV NS 0.9% 100 ML IV SCH ×2 (09:29→21:13)
[2021-10-30] MEDS: CYPROHEPTADINE HCL 4 MG TABLET PO SCH (09:29)
[2021-10-30] MEDS: PROSOURCE / PROSTAT (PYXIS) 30 ML UDC PO SCH (09:29)
[2021-10-30] MEDS: Z GUARD REMEDY 4 OZ OINT TP SCH (09:36)
[2021-10-30] MEDS: NEPRO 1,000 ML BOTTLE GT PRN (16:39)
--- NOTE | 2021-10-30 19:20 | NUR ---
RT NOTE RECEIVED PT ON 8LPM SM. NO DISTRESS NOTED AT THE MOMENT. NO SOB OR S/S OF INCREASED WOB. TX GIVEN.
--- NOTE | 2021-10-30 19:30 | NUR ---
RN NOTES PT FOUND SEMI FOWLERS DISPLAYING NO S/S OF DISTRESS, FLACC = 0 AND BREATHING DEMONSTRATES MILD DISTRESS (USE OF ACCESSORY MUSCLES) ON 8L O2 SIMPLE MASK. BEIR HUGGER ON, TEMP ASSESSMENT WILL OCCUR SHORTLY. NEPRO 1.8 TF VIA NG TUBE, LOW RESIDUAL THROUGHOUT SHIFT. R UA PICC IS PATIENT AND INTACT. HOFFMAN CATH RESERVOIR BELOW PATIENT DRAINING BY GRAVITY. SBAR AND REPORT GIVEN TO CLAMP REMOVER RN, ALL QUESTIONS ANSWERED. SAFETY MEASURES IN PLACE, BED LOCKED AND IN LOWEST POSITION, SIDE RAILS UPX2, CALL LIGHT WITHIN REACH, BED ALARM ARMED. PT ENDORSED FOR SAPNA
[2021-10-30] MEDS: VANCOMYCIN 500 MG in IV D5W 100ml IV SCH ×2 (20:00→20:08)
--- NOTE | 2021-10-30 20:00 | NUR ---
ICU NOTES Received patient in no acute distress.Remains lethargic non verbal.Respiration even and unlabored. Maintained on 8L SM well tolerated.SR with Levophed gtt infusing for BP support.NGT feeding in progress with HOB elevated.No residual noted.FC to gravity.Turned and repositioned to comfort. Continue monitoring.
[2021-10-30] MEDS: ropiniROLE 0.5 MG TABLET PO SCH (21:37)
[2021-10-31] VITALS (65 sets, daily range): BP systolic 28–135; BP diastolic 14–72
[2021-10-31] MEDS: IPRATROPIUM NEB FS 0.5 MG/2.5 ML AMPUL.NEB NEB SCH ×2 (01:26→08:09)
[2021-10-31 04:43] LABS: BASOPHILS # (AUTO) 0.1 K/uL (0.0-0.2); BASOPHILS % (AUTO) 0.2 % (0.0-2.0); EOSINOPHILS % (AUTO) 0.1 % (0.0-6.0); HEMATOCRIT 26 % (33-45); HEMOGLOBIN 8.3 g/dL (11.5-14.8); LYMPHOCYTES # (AUTO) 0.5 K/uL (0.8-4.8); LYMPHOCYTES % (AUTO) 2.1 % (20.0-44.0); MEAN CORPUSCULAR HGB CONC 32 g/dl (31.0-36.0); MEAN CORPUSCULAR VOLUME 88 fL (82-100); MONOCYTES # (AUTO) 0.3 K/uL (0.1-1.30); MONOCYTES % (AUTO) 1.4 % (2.0-12.0); NEUTROPHILS # (AUTO) 22.3 K/uL (1.8-8.9); NEUTROPHILS % (AUTO) 96.2 % (43.0-81.0); RED BLOOD CELL COUNT(AUTO) 2.91 MIL/uL (4.0-5.2); WHITE BLOOD COUNT (AUTO) 23.2 K/uL (4.3-11.0)
[2021-10-31 04:49] LABS: MAGNESIUM 1.6 mg/dL (1.8-2.4)
[2021-10-31 04:53] LABS: CALCIUM, SERUM 7.2 mg/dL (8.5-10.1); CARBON DIOXIDE 24 mmol/L (21-32); CHLORIDE 109 mmol/L (98-107); CREATININE 2.1 mg/dL (0.6-1.3); GLUCOSE 188 mg/dL (74-106); SODIUM SERUM 144 mmol/L (136-145)
[2021-10-31] MEDS: IV D5/0.45 NACL 1,000 ML IV PRN (05:00)
[2021-10-31 05:14] LABS: PLATELET COUNT (AUTO) 26 K/uL (150-450)
[2021-10-31 05:17] LABS: UREA NITROGEN, BLOOD 104 mg/dL (7-18)
--- NOTE | 2021-10-31 06:40 | NUR ---
END NOTE Patient resting in no acute distress.VS stable.SR/ST low 100's.Tolerating NGT feeding and O2 Simple mask.Levophed infusing at 0.2mcg.Blood sugar monitored.AM care done.Turned and repositioned.No significant change noted during the shift.AM LABS resulted PLATELET =26,BUN= 104,LACTIC ACID=2.4 will endorse to day shift for SAPNA.
[2021-10-31] MEDS: BLOOD SUGAR DIAGNOSTIC 1 EACH STRIP IN SCH ×2 (06:55→12:23)
[2021-10-31] MEDS: NOREPINEPHRINE 32 MG in IV NS 0.9% 218 ML IV PRN (07:13)
[2021-10-31] MEDS ORDERED: VANCOMYCIN 500 MG in IV D5W 100 ML IV SCH (08:00)
--- NOTE | 2021-10-31 08:00 | NUR ---
VACO TROUGH 21 RESULTED FROM MORNING LABS RN TO HOLD MORNING DOSE OF VANCOMYCIN
--- NOTE | 2021-10-31 08:07 | NUR ---
RN OPENING NOTE PT RECIEVED IN STABLE CONDITION ON NON REBREATHER 15L. FOUND WITH EYES CLOSED BREATHING EVENLY AND UNLABORED. BEDSIDE MONITOR SHOWS SR PATIENT ON VASOACTIVE MEDICATION HOLDING BP ABOVE SET PERAMETERS. PICC LINE IN PLACE AND PATENT NO S/S OF INFILTRATION. LEFT FOREARM AND LEFT WRIST IV CATHETERS IN PLACE NO S/S OF INFILTRATION HOFFMAN CATH DRAINING AKASH COLORED URINE. FEEDING TUBE IN PLACE RUNNING FORMULA. LABS REVIEWED ALL SAFTEY MEASURES [facility] X3
[2021-10-31 08:17] LABS: BAND % (MANUAL) 2 % (0.0-5.0); LYMPHOCYTES % (MANUAL) 3 % (16-48); MONOCYTES % (MANUAL) 3 % (0-11.0); NEUTROPHILS % (MANUAL) 92 (42-76)
[2021-10-31] MEDS: CALCIUM CARB 250MG /VITAMIN D 1 UDTAB PO SCH (08:37)
[2021-10-31] MEDS: CYPROHEPTADINE HCL 4 MG TABLET PO SCH (08:37)
[2021-10-31] MEDS: PROSOURCE / PROSTAT (PYXIS) 30 ML UDC PO SCH (08:37)
[2021-10-31] MEDS: PANTOPRAZOLE 40 MG VIAL IV SCH (08:37)
[2021-10-31] MEDS: MEROPENEM 1 G in IV NS 0.9% 100 ML IV SCH (08:38)
[2021-10-31] MEDS: Z GUARD REMEDY 4 OZ OINT TP SCH (09:00)
[2021-10-31] MEDS ORDERED: Magnesium 1GM/D5W 100ML PREMIX 100 ML IV SCH ×2 (11:30)
[2021-10-31] MEDS ORDERED: POTASSIUM CL. PREMIX PERIPHER. 50 ML IV SCH (11:30)
[2021-10-31] MEDS ORDERED: POTASSIUM CHLORIDE 20 MEQ POWDER PACKET GT ONE (11:30)
[2021-10-31] MEDS ORDERED: POTASSIUM CHLORIDE 20 MEQ TAB.PRT.SR PO SCH (11:30)
[2021-10-31] MEDS ORDERED: ONDANSETRON HCL/PF 4 MG/2 ML VIAL IV PRN (13:30)
[2021-10-31] MEDS ORDERED: LORAZEPAM INJ 2 MG/ML VIAL IV PRN (13:30)
[2021-10-31] MEDS ORDERED: SCOPOLAMINE PATCH 1 MG/72HR TD SCH (13:30)
[2021-10-31] MEDS ORDERED: MORPHINE SULFATE PF DRIP 250 MG in IV D5W 240 ML IV PRN (14:00)
--- NOTE | 2021-10-31 18:58 | NUR ---
ICU CLOSING PT IN STABLE CONDITION A/O X2 ABLE TO FOLLOW COMMANDS BUT STILL LETHARGIC. ON BEDSIDE MONITOR W/ CONTROLED AFIB @76BPM. HOFFMAN CATHETER DRAINED AND PATENT WITH YELLOW FUILD DRAINING 1300ML OUTPUT. NG TUBE IN PLACE AND PATENT RUNNING JEVITY @65ML/ HR RIGHT UPPER ARM PICC LINE PATENTS AND NO SXS OF INFILTRATION. PER MD JULIO FUROSIMIDE DC AND BIPAP DC PER DR. GORE. BED IN LOWEST POSITION X3 SIDE RAILS UP LOW FOWLERS REPORT GIVEN TO HELIO Addendum: 10/31/21 at 1908 by EDDIE NAVARRO RN INCORRECT PT CHARTED ON PT 16:18
== END 2021-10-31 17:59 | DRG 871 ==
LOC: ER 07:48 → ICU 19:58
PROVIDERS: ADMIT Internal Medicine; ATTEND Internal Medicine
PROC: 02HV33Z Insertion of Infusion Device into Superior Vena Cava, Percutaneous Approach (ICD-10-PCS; principal; 2021-10-27)
PROC: B548ZZA Ultrasonography of Superior Vena Cava, Guidance (ICD-10-PCS; 2021-10-27)
DX: A41.9 Sepsis, unspecified organism (principal); E43 Unspecified severe protein-calorie malnutrition; R65.21 Severe sepsis with septic shock; J69.0 Pneumonitis due to inhalation of food and vomit; J96.01 Acute respiratory failure with hypoxia; E87.2 Acidosis; N17.9 Acute kidney failure, unspecified; N39.0 Urinary tract infection, site not specified; E87.1 Hypo-osmolality and hyponatremia; E87.0 Hyperosmolality and hypernatremia; J44.0 Chronic obstructive pulmonary disease with (acute) lower respiratory infection; R64 Cachexia; Z68.1 Body mass index [BMI] 19.9 or less, adult; E11.22 Type 2 diabetes mellitus with diabetic chronic kidney disease; I12.9 Hypertensive chronic kidney disease with stage 1 through stage 4 chronic kidney disease, or unspecified chronic kidney disease; N18.9 Chronic kidney disease, unspecified; E86.0 Dehydration; Z66 Do not resuscitate; Z51.5 Encounter for palliative care; Z20.822 Contact with and (suspected) exposure to COVID-19; F03.90 Unspecified dementia, unspecified severity, without behavioral disturbance, psychotic disturbance, mood disturbance, and anxiety; M19.90 Unspecified osteoarthritis, unspecified site; D69.6 Thrombocytopenia, unspecified; D64.9 Anemia, unspecified; Z88.6 Allergy status to analgesic agent; Z88.0 Allergy status to penicillin; Z88.8 Allergy status to other drugs, medicaments and biological substances; Z79.899 Other long term (current) drug therapy; E87.5 Hyperkalemia; Z99.81 Dependence on supplemental oxygen; F17.200 Nicotine dependence, unspecified, uncomplicated; R91.1 Solitary pulmonary nodule; M20.41 Other hammer toe(s) (acquired), right foot; M20.42 Other hammer toe(s) (acquired), left foot; M62.50 Muscle wasting and atrophy, not elsewhere classified, unspecified site; L89.626 Pressure-induced deep tissue damage of left heel; L89.616 Pressure-induced deep tissue damage of right heel; F09 Unspecified mental disorder due to known physiological condition; G25.81 Restless legs syndrome; L89.156 Pressure-induced deep tissue damage of sacral region; R62.7 Adult failure to thrive; E83.42 Hypomagnesemia; E87.6 Hypokalemia; N28.1 Cyst of kidney, acquired; E88.09 Other disorders of plasma-protein metabolism, not elsewhere classified; B96.20 Unspecified Escherichia coli [E. coli] as the cause of diseases classified elsewhere
CPT/HCPCS: 36415; 36600; 71045-TC; 76705-TC; 76770-TC; 80048-TC; 80053-TC; 80076-TC; 80202-TC; 81001; 82248-TC; 82570-TC; 82803-TC; 82962-TC; 83605-TC; 83735-TC; 84300-TC; 84484-TC; 85025-TC; 85730-TC; 86022; 87040-TC; 87070-TC; 87081-TC; 87086-TC; 87186-TC; 92526; 92611-TC; 94760-TC; 94799-TC; C1750; C9113; C9803; G0378; J0692; J1160; J1644; J1940; J1956; J2185; J2274; J2370; J3370; J3475; J3480; J3490; J7030; J7040; J7042; J7050; J7060